=== PATIENT | male | born 1945 | race Caucasian/White ===

== ENCOUNTER → 2017-01-30 | Outpatient (CLI) | payer OTHER, MEDICARE ==
[~2017-01-30] MED LIST: Benadryl PO; Coumadin,Jantoven PO; Feosol PO; HYDROCHLOROTHIAZIDE; LIPITOR; LISINOPRIL; Lipitor PO; Lovenox SC; METOPROLOL; Norvasc PO; PROzac PO; Senokot S,Pericolace PO; Toprol XL PO; Vicodin,Norco 5/325 PO; ZITHROMAX Z-PA250 MG PO; celeBREX PO
== END | disposition home or self-care (01) ==
LOC: NUC 08:56
DX: M19.012 Primary osteoarthritis, left shoulder (principal); M19.011 Primary osteoarthritis, right shoulder; M17.0 Bilateral primary osteoarthritis of knee
CPT/HCPCS: 78306; A9503